=== PATIENT | male | born 1985 | race Caucasian/White ===

== ENCOUNTER 2018-04-12 17:32 | Emergency (ER) | payer OTHER ==
[~2018-04-12] VITALS: Ht 177.8 cm; Wt 107.5 kg
[2018-04-12 17:55] VITALS: BP 145/87
--- NOTE | 2018-04-12 17:58 | NUR ---
PATIENT AMBULATED TO BED 11
--- NOTE | 2018-04-12 18:06 | NUR ---
32 year old male, A&0x4, came to the ED with his sister and mom in a private vehicle. Pt states for the past 7 days he has felt excessive weakness, fatigue, anxiety. Denies all pain. States severity of symtpoms at 7/10. No medical hx. Clear speech. Pt states he throught the symptoms were due to the heat but they have persisted. AC does help the s/sx however, they do not go away completely. Pt states that he also has periods of time where everything goes black and he only regains vision when he sits down, gets air and breathes.
--- NOTE | 2018-04-12 18:09 | NUR ---
BLOOD SUGAR 98.
[2018-04-12 18:57] LABS: BASOPHILS # (AUTO) 0.1 K/uL (0.00-0.22); BASOPHILS % (AUTO) 0.5 % (0.0-2.0); EOSINOPHILS % (AUTO) 0.4 % (0.0-4.0); HEMATOCRIT 45.3 % (36-52); HEMOGLOBIN 14.9 g/dL (12.0-18.0); LYMPHOCYTES # (AUTO) 2.4 K/uL (2.0-11.5); LYMPHOCYTES % (AUTO) 23.8 % (20.5-51.1); MEAN CORPUSCULAR HEMOGLOBIN 28 pg (27-31); MEAN CORPUSCULAR HGB CONC 33 g/dL (33-37); MEAN CORPUSCULAR VOLUME 84.9 fL (80-94); MONOCYTES # (AUTO) 0.5 K/uL (0.8-1.0); MONOCYTES % (AUTO) 5.3 % (1.7-9.3); NEUTROPHILS # (AUTO) 6.9 K/uL (1.8-7.7); PLATELET COUNT (AUTO) 246 K/uL (140-450); RED BLOOD CELL COUNT(AUTO) 5.33 MIL/uL (4.20-6.10); RED CELL DISTRIBUTION WIDTH 13.3 % (11.6-13.7); WHITE BLOOD COUNT (AUTO) 9.9 K/uL (4.8-10.8)
[2018-04-12 19:07] LABS: ANION GAP 14.3 (8-16); CARBON DIOXIDE 25.4 mmol/L (21-32); POTASSIUM 3.7 mmol/L (3.5-5.1)
[2018-04-12 19:13] LABS: ALBUMIN 3.9 g/dL (3.4-5.0); TOTAL BILIRUBIN 0.5 mg/dL (0.0-1.0)
--- NOTE | 2018-04-12 19:16 | NUR ---
GAVE REPORT TO CAL MACIAS, FOR CONTINUATION OF CARE
[2018-04-12 19:20] LABS: PROTHROMBIN TIME 10.3 secs (10.8-13.4)
--- NOTE | 2018-04-12 19:26 | NUR ---
RECEIVED REPORT FROM AM NURSE. PT RESTING IN BED COMFORTABLY. ALL NEEDS MET AT THIS TIME.
[2018-04-12] MEDS ORDERED: MECLIZINE 25 MG TAB PO ONE (19:35)
--- NOTE | 2018-04-12 19:42 | NUR ---
PT BEING TAKEN TO CT IN WHEELCHAIR IN STABLE CONDITION
[2018-04-12 19:46] LABS: BARBITURATE, URINE NEG. ng/ml (NEG <=200); BENZODIAZEPINE, URINE NEG. ng/mL (NEG <=200); CANNABINOID, URINE NEG. ng/mL (NEG <=50); COCAINE, URINE NEG. ng/mL (NEG <=300); OPIATE, URINE NEG. ng/mL (NEG <=2000); PHENCYCLIDINE SCREEN,URINE NEG. ng/mL (NEG <=25)
[2018-04-12 20:47] VITALS: BP 128/69
--- NOTE | 2018-04-12 20:49 | NUR ---
Patient discharged with v/s stable. Written and verbal after care instructions given and explained. Patient alert, oriented and verbalized understanding of instructions. Ambulatory with steady gait. All questions addressed prior to discharge. ID band removed. Patient advised to follow up with PMD. Rx of MECLIZINE HYDROCHLORIDE 25 MG given. Patient educated on indication of medication including possible reaction and side effects. Opportunity to ask questions provided and answered.
== END 2018-04-12 20:49 | disposition home or self-care (01) ==
LOC: MED 17:32
DX: R42 Dizziness and giddiness (principal); R94.31 Abnormal electrocardiogram [ECG] [EKG]; R53.1 Weakness; R06.02 Shortness of breath; R11.2 Nausea with vomiting, unspecified
CPT/HCPCS: 36415; 70450; 71045; 80053; 80305; 82948; 83880; 84484; 85025; 85610; 85730; 93005; 99285; J8597

== ENCOUNTER 2023-03-02 18:44 | Emergency (ER) | payer OTHER ==
[~2023-03-02] VITALS: Ht 177.8 cm; Wt 119.7 kg
[2023-03-02 18:57] VITALS: BP 117/74
--- NOTE | 2023-03-02 19:00 | NUR ---
pt is alert and oriented x 4.
--- NOTE | 2023-03-02 19:02 | NUR ---
pt ambulatory to [facility]
--- NOTE | 2023-03-02 19:03 | NUR ---
pt reported pain 05/10 around the chest
[2023-03-02] MEDS ORDERED: LIDOCAINE 5% 1 EA PATCH TP ONE ×2 (19:30→20:35)
[2023-03-02] MEDS ORDERED: KETOROLAC 30 MG/ML VIAL IM ONE (19:30)
[2023-03-02] MEDS ORDERED: KETOROLAC 30 MG/ML VIAL ONE (20:35)
[2023-03-02] MEDS ORDERED: LID5T TP (20:44)
[2023-03-02] MEDS ORDERED: IBUP-2213 PO (20:44)
[2023-03-02 20:50] VITALS: BP 116/64
--- NOTE | 2023-03-02 21:22 | NUR ---
Patient discharged with v/s stable. Written and verbal after care instructions given and explained. Patient alert, oriented and verbalized understanding of instructions. [g ED.DCMODE] with [g ED.D/CMODE]. All questions addressed prior to discharge. ID band removed. Patient advised to follow up with PMD. Rx of ibuprofen and lidocaine given. Patient educated on indication of medication including possible reaction and side effects. Opportunity to ask questions provided and answered.
== END 2023-03-02 20:50 | disposition home or self-care (01) ==
LOC: MED 18:44
DX: R07.89 Other chest pain (principal)
CPT/HCPCS: 71045; 93005; 96372; 99283; J1885

== ENCOUNTER 2023-12-13 17:44 | Emergency (ER) | payer OTHER ==
[~2023-12-13] VITALS: Ht 180.3 cm; Wt 115.7 kg
[~2023-12-13 17:44] MED LIST: IBUP-2213 PO; LID5T TP
[2023-12-13 17:53] VITALS: BP 124/71; PULSE 95; RESP 18; TEMP 97.6; O2SAT 95
[2023-12-13 18:25] VITALS: O2SAT 95
[2023-12-13 19:39] VITALS: O2SAT 95
[2023-12-13 19:53] VITALS: BP 118/67; PULSE 72; RESP 15; TEMP 97.9; O2SAT 97
[2023-12-13] MEDS ORDERED: IBUP-2213 PO (20:40)
== END 2023-12-13 20:55 | disposition home or self-care (01) ==
LOC: MED 17:44
DX: S93.401A Sprain of unspecified ligament of right ankle, initial encounter (principal); E11.9 Type 2 diabetes mellitus without complications; I10 Essential (primary) hypertension; E78.5 Hyperlipidemia, unspecified; Z79.899 Other long term (current) drug therapy; W10.8XXA Fall (on) (from) other stairs and steps, initial encounter; Y92.89 Other specified places as the place of occurrence of the external cause; Y93.89 Activity, other specified; Y99.8 Other external cause status
CPT/HCPCS: 73610; 99283